=== PATIENT | male | born 1980 | race Caucasian/White ===

== ENCOUNTER 2019-10-17 07:10 | Emergency (ER) | payer OTHER ==
[2019-10-17] MEDS ORDERED: Bacitracin/Neomycin/Polymyxin B Oint 0.9 GM U/D Packet ONE (07:22)
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
[2019-10-17] MEDS ORDERED: Bacitracin/Neomycin/Polymyxin B Oint 0.9 GM U/D Packet TOP ONE (07:47)
== END 2019-10-17 08:00 | disposition home or self-care (01) ==
LOC: CC.ED 07:10
DX: S00.31XA Abrasion of nose, initial encounter (principal); S20.412A Abrasion of left back wall of thorax, initial encounter; F17.210 Nicotine dependence, cigarettes, uncomplicated; V69.9XXA Occupant (driver) (passenger) of heavy transport vehicle injured in unspecified traffic accident, initial encounter
CPT/HCPCS: 99283